=== PATIENT | male | born 1970 | race Caucasian/White ===

== ENCOUNTER 2019-08-05 05:22 | Emergency (ER) | payer OTHER ==
[2019-08-05 05:51] VITALS: TEMP 97.4; BMI 25.7
--- NOTE | 2019-08-05 07:45 | PDOC ---
History of Present Illness - General Chief Complaint: Seizure Stated Complaint: SEIZURES Time Seen by Provider: 08/05/19 07:03 Past History - Past Medical History Allergies/Adverse Reactions: Allergies Allergy/AdvReac Type Severity Reaction Status Date / Time No Known Allergies Allergy Verified 08/05/19 05:25 Home Medications: Ambulatory Orders Levothyroxine [Synthroid -] 150 mcg PO DAILY 08/05/19 Paroxetine HCl 20 mg PO DAILY 08/05/19 COPD: No Psychiatric Problems: Yes (depression, social anxiety disorder) Thyroid Disease: Yes (hyperthyroidism) - Psycho Social/Smoking Cessation Hx Smoking History: Never smoked Hx Alcohol Use: No Drug/Substance Use Hx: No *Physical Exam - Vital Signs Last Vital Signs Temp Pulse Resp BP Pulse Ox 97.4 F L 65 18 100/55 L 95 08/05/19 05:25 08/05/19 05:25 08/05/19 05:25 08/05/19 05:25 08/05/19 05:25 ED Treatment Course - LABORATORY CBC & Chemistry Diagram: 08/05/19 08:19 08/05/19 08:19 Medical Decision Making - Medical Decision Making 08/05/19 08:13 HPI: 49yo M hx hyperthyroidism s/p thyroidectomy on Synthroid, nightmares, sleepwalking and sleeptalking, social anxiety disorder on Paxil, MJ use, and use of multiple supplements including Creatine and Zinc presents from home c/o generalized weakness s/p 10min episode of full-body shaking, mouth foaming, and tongue biting at 0437 this AM in bed followed by 2-3min confusion with amnesia to event, no hx similar sx or seizures. Pt was in [facility] yesterday, no head injury or overexertion, works out 3x/wk but did not work out yesterday. Smokes medical MJ from "top shelf" source, denies cigarettes, rare alcohol (not in past couple days), no other drugs. Pt went to bed at 0030 and next remembers getting out of bed to go to bathroom and EMS was there and took him to hospital. Pt feels weak but otherwise fine. states at 0437 pt was grunting in his sleep, which he used to do years prior. But then noticed pt was gurgling, foaming at mouth, and hands were stuck crossed and legs stuck crossed and his whole body was shaking/trembling. got sister (nurse) and they put him on his side, they couldn't wake him up. Sx persisted for approx 10min then pt stopped and woke up but was confused for 2-3min until EMS arrived. Pt got up on his own and went to bathroom. Endorses tongue biting, denies urinary or bowel incontinence. Hx nightmares and sleepwalking and sleeptalking and grinding teeth since child, but no hx shaking or tongue biting. Takes multiple supplements for working out including Creatine; most recent change was addition of Zinc 3 weeks ago. Denies recent travel, recent illness, sick contacts, trauma , head injury, fall, change in meds, change in MJ supplier, hx seizures, FHx seizures, fever, chills, fatigue, headache, dizziness, numbness/tingling, weakness, vision changes, shortness of breath, cough, chest pain, palpitations, leg swelling, abdominal pain, blood in stool, diarrhea, constipation, nausea, vomiting, dysuria, hematuria, confusion. PCP - Po Fry ROS: Constitutional: Negative for chills, fever, fatigue, diaphoresis. HENT: Negative for sore throat, rhinorrhea, congestion. Eyes: Negative for visual disturbance. Respiratory: Negative for shortness of breath, cough, and wheezing. Cardiovascular: Negative for chest pain, palpitations, and leg swelling. Gastrointestinal: Negative for abdominal pain, blood in stool, constipation, diarrhea, nausea, and vomiting. Genitourinary: Negative for dysuria, flank pain, and hematuria. Musculoskeletal: Negative for myalgias, back pain, and neck pain. Skin: Negative for rash. Neurological: Positive for "seizure". Negative for light-headedness, dizziness, vertigo, weakness, numbness and headaches. Psychiatric/Behavioral: Positive for confusion. Negative for behavioral problems. PE: Gen: Alert, NAD, comfortable-appearing. HEENT: PERRL, EOMI, MMM, NCAT. No conjunctival pallor. Sclera are non-icteric. CV: Regular rate and rhythm. No murmurs, rubs, or gallops. PULM: No resp distress. CTAB, no wheezes, rales, or rhonchi. ABD: soft, NT/ND, no rebound tenderness or guarding, no CVA tenderness. BACK: No TTP of c/t/l-spine. No step-offs or deformities. MSK: No bony deformities. 2+ pulses in all extremities. NEURO: AAOx3. PERRL. CN 2-12 intact. 5/5 strength in all extremities. Sensation to light touch intact in all extremities. No pronator drift. No dysmetria. No dysdiadochokinesia. No abnormal nystagmus. Normal gait. EXTREMITIES: No cyanosis. No clubbing. No edema. No calf tenderness. PSYCH: Normal mood and thought pattern. SKIN: Warm and dry. Normal capillary refill. No rashes. No jaundice. MDM: 49yo M hx hyperthyroidism s/p thyroidectomy on Synthroid, nightmares, sleepwalking and sleeptalking, social anxiety disorder on Paxil, MJ use, and use of multiple supplements including Creatine and Zinc presents from home with generalized weakness s/p 10min episode of full-body shaking, mouth foaming, and tongue biting at 0437 this AM in bed followed by 2-3min confusion with amnesia to event, no hx similar sx or seizures. Hemodynamically stable, afebrile, neurologically intact. Ddx 1st time seizure vs syncope: metabolic derangement, anemia, ICH, stroke, thyroid pathology, infection, cardiac pathology (ACS/TN or arrhythmia), intox, withdrawal, AE Paxil. Also consider night terror. No headache, neck stiffness, photophobia, fever, neurologic deficit, or head injury concerning for meningitis or SAH at this time. -EKG -CXR -CTH -CBC,CMP,Coags,Mg,Phos,TSH,free T3/T4,Cardiac profile,UA/UC/UDS -Consult Neuro -Dispo: pending w/u 08/05/19 09:33 EKG reviewed: NSR, 63bpm, normal intervals, normal axis, no TWIs, no ST elevations or depressions CXR reviewed: no acute pathology CTH reviewed: no acute pathology Labs reviewed. UDS +THC. TSH 8.28, free T4 0.71. CBC,CMP WBC 9.1 K/mm3 (4.0-10.0) 08/05/19 08:19 RBC 4.59 M/mm3 (4.00-5.60) 08/05/19 08:19 Hgb 14.0 GM/dL (11.7-16.9) 08/05/19 08:19 Hct 42.3 % (35.4-49) 08/05/19 08:19 MCV 92.3 fl (80-96) 08/05/19 08:19 MCH 30.6 pg (25.7-33.7) 08/05/19 08:19 MCHC 33.1 g/dl (32.0-35.9) 08/05/19 08:19 RDW 14.1 % (11.9-15.9) 08/05/19 08:19 Plt Count 265 K/MM3 (134-434) 08/05/19 08:19 MPV 8.2 fl (7.5-11.1) 08/05/19 08:19 Absolute Neuts (auto) 6.6 K/mm3 (1.5-8.0) 08/05/19 08:19 Neutrophils % 72.8 % (42.8-82.8) 08/05/19 08:19 Lymphocytes % 17.5 % (8-40) 08/05/19 08:19 Monocytes % 5.4 % (3.8-10.2) 08/05/19 08:19 Eosinophils % 3.3 % (0-4.5) 08/05/19 08:19 Basophils % 1.0 % (0-2.0) 08/05/19 08:19 Nucleated RBC % 0 % (0-0) 08/05/19 08:19 Sodium 134 mmol/L (136-145) L 08/05/19 08:19 Potassium 4.5 mmol/L (3.5-5.1) 08/05/19 08:19 Chloride 100 mmol/L (98-107) 08/05/19 08:19 Carbon Dioxide 32 mmol/L (21-32) 08/05/19 08:19 Anion Gap 2 MMOL/L (8-16) L 08/05/19 08:19 BUN 13.7 mg/dL (7-18) 08/05/19 08:19 Creatinine 1.0 mg/dL (0.55-1.3) 08/05/19 08:19 Est GFR (CKD-EPI)AfAm 102.69 08/05/19 08:19 Est GFR (CKD-EPI)NonAf 88.61 08/05/19 08:19 Random Glucose 103 mg/dL (74-106) 08/05/19 08:19 Lactic Acid 0.8 mmol/L (0.4-2.0) 08/05/19 08:19 Calcium 8.7 mg/dL (8.5-10.1) 08/05/19 08:19 Phosphorus 2.4 mg/dL (2.5-4.9) L 08/05/19 08:19 Magnesium 2.3 mg/dL (1.8-2.4) 08/05/19 08:19 Total Bilirubin 0.3 mg/dL (0.2-1) 08/05/19 08:19 AST 26 U/L (15-37) 08/05/19 08:19 ALT 32 U/L (13-61) 08/05/19 08:19 Alkaline Phosphatase 61 U/L (45-117) 08/05/19 08:19 Creatine Kinase 215 U/L (26-308) 08/05/19 08:19 Creatine Kinase Index 1.1 % (0.0-5.0) 08/05/19 08:19 CK-MB (CK-2) 2.5 ng/mL (0.5-3.6) 08/05/19 08:19 Troponin I < 0.02 ng/ml (0.00-0.05) 08/05/19 08:19 Total Protein 6.6 g/dl (6.4-8.2) 08/05/19 08:19 Albumin 3.7 g/dl (3.4-5.0) 08/05/19 08:19 TSH 8.28 uIU/ml (0.358-3.74) H 08/05/19 08:19 Free T4 0.71 ng/dl (0.76-1.16) L 08/05/19 08:19 Free T3 Cancelled 08/05/19 08:19 Pt now complaining of mild headache - tylenol given. Consult and call placed to Neurology Dr Martinez. 08/05/19 10:12 Headache resolved. Pt wants to go home. 08/05/19 10:[address] Martinez - recommends admission but if pt baseline, can d/c and see outpatient tomorrow AM. -seizure precautions -no tx at this time -will see in office (for neuro eval, MRI, EEG etc) tomorrow at 1000 08/05/19 10:43 Pt reassessed. Remains neurologically intact. No sx at this time. Wants to go home, agrees to f/u neurology tomorrow AM. Discussed results, f/u, return precautions, and seizure precautions. Will d/c home with Dr Martinez and PCP f/u. Discharge - Discharge Information Problems reviewed: Yes Clinical Impression/Diagnosis: Convulsions Condition: Improved Disposition: HOME - Admission No - Follow up/Referral Referrals: Po Fry MD [Primary Care Provider] - Demetrio Martinze MD [Staff Physician] - - Patient Discharge Instructions Patient Printed Discharge Instructions: DI for Seizure Disorder -- Adult Additional Instructions: You have been seen in the Emergency Department for your convulsions. Your exam, EKG, CT scan of your head, chest X-Ray, and labs show no signs of an emergent condition at this time. However, your presentation is concerning for a seizure so you need prompt Neurology follow-up. Neurologist Dr. Martinez has been consulted and can see you for further evaluation and monitoring at 10:00am tomorrow morning 08/06/19. For now, it is important to stay away from any activities that could be dangerous if you have a seizure. These include driving, operating heavy machinery, or swimming. Your labs also indicate that your thyroid levels are not exactly within normal limits. Follow up with your primary care doctor within 1 week to discuss in case you need your dosage changed. Return to the Emergency Department immediately if you experience any new or worsening symptoms including a seizure, difficulty breathing, chest pain, severe headache, numbness or tingling, or weakness. - Post Discharge Activity
[2019-08-05 08:35] LABS: EOS % 3.3 % (0-4.5); HEMATOCRIT 42.3 % (35.4-49); LYMPH % 17.5 % (8-40); MCH 30.6 pg (25.7-33.7); MCHC 33.1 g/dl (32.0-35.9); MEAN CELL VOLUME 92.3 fl (80-96); MEAN PLT VOLUME 8.2 fl (7.5-11.1); MONO % 5.4 % (3.8-10.2); NEUT % 72.8 % (42.8-82.8); PLATELET COUNT 265 K/MM3 (134-434); RBC 4.59 M/mm3 (4.00-5.60); RDW 14.1 % (11.9-15.9); WHITE BLOOD COUNT 9.1 K/mm3 (4.0-10.0)
[2019-08-05 08:36] LABS: URINE APPEARANCE CLEAR; URINE BILIRUBIN NEGATIVE (NEGATIVE); URINE COLOR YELLOW; URINE GLUCOSE (UA) NEGATIVE (NEGATIVE); URINE KETONE NEGATIVE (NEGATIVE); URINE LEUK ESTERASE NEGATIVE (NEGATIVE); URINE NITRITE NEGATIVE (NEGATIVE); URINE PROTEIN NEGATIVE (NEGATIVE); URINE UROBILINOGEN 0.2 mg/dL (0.2-1.0)
[2019-08-05 08:48] LABS: INR 0.97 (0.83-1.09); PROTHROMBIN TIME (PATIENT) 11.5 SEC (9.7-13.0)
[2019-08-05 08:55] LABS: MAGNESIUM 2.3 mg/dL (1.8-2.4); PHOSPHOROUS 2.4 mg/dL (2.5-4.9)
[2019-08-05 08:58] LABS: COCAINE, UR NEGATIVE ng/ml (CUTOFF=300); METHADONE, UR NEGATIVE ng/ml (CUTOFF=300); OPIATES, URI NEGATIVE ng/ml (CUTOFF=300); PHENCYCLIDINE,URINE NEGATIVE ng/ml (CUTOFF=25); URINE AMPHETAMINES NEGATIVE ng/ml (CUTOFF=500); URINE BARBITURATES NEGATIVE ng/ml (CUTOFF=200); URINE BENZODIAZEPINES NEGATIVE ng/ml (CUTOFF=200)
[2019-08-05] MEDS ORDERED: ACETAMINOPHEN 500 MG TABLET (FP) PO ONE (09:03)
[2019-08-05 09:07] LABS: ALBUMIN 3.7 g/dl (3.4-5.0); BILIRUBIN,TOTAL 0.3 mg/dL (0.2-1); BLOOD UREA NITROGEN 13.7 mg/dL (7-18); CALCIUM 8.7 mg/dL (8.5-10.1); POTASSIUM 4.5 mmol/L (3.5-5.1); TOT PROT 6.6 g/dl (6.4-8.2)
[2019-08-05] MEDS ORDERED: ACETAMINOPHEN 325 MG TABLET (FP) ONE (09:10)
--- NOTE | 2019-08-05 10:09 | PDOC ---
Documentation entered by Miriam Ayala SCRIBE, acting as scribe for Marychuy Rodriguez MD. Marychuy Rodriguez MD: This documentation has been prepared by the Lucy balderas Joy, SCRIBE, under my direction and personally reviewed by me in its entirety. I confirm that the documentation accurately reflects all work, treatment, procedures, and medical decision making performed by me. Attending Attestation - Resident Resident Name: RachaelrichaCaty - ED Attending Attestation I have performed the following: I have examined & evaluated the patient, The case was reviewed & discussed with the resident, I agree w/resident's findings & plan, Exceptions are as noted - HPI HPI: 08/05/19 10:00 The patient is a 49 year old male with significant past medical history of hypothyroidism and depression who presents to the ED today with seizure. As per patient, at 12:38 AM last night, his heard him snort and noticed that his hands were crossed and foaming at the mouth.This incident occurred around 4: 30am. Patient states his family members turned him on his side and tried to wake him, however he was not responsive for 8 minutes. The patient states he has used cannabis last night. Patient endorses that this has never happened before. The patient adds having headache which is now resolved and feeling tired. Pt bit his tongue during this episode but had no loss of control of urine or stool. The patient denies chest pain, shortness of breath, and dizziness. Denies runny nose, sore throat, fever, chills, nausea, vomiting, diarrhea and constipation. All systems are reviewed and negative except as noted in the HPI. Allergies: NKA Surgical History: Hernia, ear, and knee surgery. Social History: Smoker, cannabis use (last night), no alcohol use. PCP: Dr. Po Fry 08/05/19 10:14 08/05/19 10:16 - Physicial Exam PE: 08/05/19 10:02 CONSTITUTIONAL: +Skin is dry. Well-appearing; well-nourished; in no apparent distress HEAD: Normocephalic; atraumatic EYES: PERRL; EOM intact ENMT: +Redness in throat, trauma in ear (irritation due to Q-tip use). External appears normal. NECK: Supple; non-tender; no cervical lymphadenopathy CARD: Normal S1, S2; no murmurs, rubs, or gallops RESP: Normal chest excursion with respiration; breath sounds clear and equal bilaterally; no wheezes, rhonchi, or rales ABD: Soft, non-distended; non-tender; no palpable organomegaly, no palpable hernias Neuro: pt is alert and oriented x3, fozia no focal deficits 08/05/19 10:15 - Medical Decision Making 08/05/19 10:16 49 y/o male with h/o hypothyroidism, anxiety/depression brought into ED by EMS for evaluation after this event. Pt currently feels fine, just tired and is anxious to go home. MDM: DD includes but not limited to the following: Drug induced seizure (may have been reaction to something in the THC) Pt may have had some type of apenic event (related to undiagnosed seizures), pt had some type of cardiac event( unlikely). Plan obtain cbc, cmp, tsh, trop, ct of head, cxr , neuro consult. Pt's labs ct results noted above, pt offered admission but declined prefers to go home. Neurology has agreed to see Pt in office tomorrow around 10am. Pt to follow seizures precautions, no driving ,swimming, operating, heavy machinery. Pt's ct of head noted and unremarkable, cxr wet read no acute pathology. Will not start any meds at present, Pt may need EEG and additional imagining as decided by neuro. Pt also should f/u with pcp to adjust his synthroid dose as his TSH is elevated on his current dose of meds.Pt given opportunity to ask and have all questions answered prior to dc home. 08/05/19 10:27 08/05/19 10:38 08/05/19 11:11
[2019-08-05 11:03] VITALS: BP 104/60; PULSE 68
--- NOTE | 2019-08-05 15:22 | EKG ---
Test Reason : Blood Pressure : / mmHG Vent. Rate : 063 BPM Atrial Rate : 063 BPM P-R Int : 194 ms QRS Dur : 100 ms QT Int : 406 ms P-R-T Axes : 062 058 051 degrees QTc Int : 415 ms NORMAL SINUS RHYTHM NORMAL ECG NO PREVIOUS ECGS AVAILABLE Confirmed by MD SHAUNNA, BREEZY ([id number]) on 08/05/2019 3:21:30 PM Referred By: Confirmed By:BREEZY MAZA MD
== END 2019-08-05 11:03 | disposition home or self-care (01) ==
LOC: JER 05:22
DX: R56.9 Unspecified convulsions (principal); R51 Headache; R53.1 Weakness; F32.9 Major depressive disorder, single episode, unspecified; E89.0 Postprocedural hypothyroidism
CPT/HCPCS: 36415; 70450-TC; 71046-TC-FY; 80053; 80307; 81003; 82550; 82553; 83605; 83735; 84100; 84439; 84443; 84481; 84484; 85025; 85610; 87086; 93005; 93010; 99284-25